=== PATIENT | male | born 1980 | race Caucasian/White ===

== ENCOUNTER 2018-02-13 02:26 | Emergency (ER) | payer SELFPAY ==
[2018-02-13 04:03] LABS: Basophils # (Auto) 0.1 K/mm3 (0.0-0.1); Basophils % (Auto) 0.7 % (0.0-1.8); Eosinophils # (Auto) 0.1 K/mm3 (0.0-0.4); Eosinophils % (Auto) 0.5 % (0.0-4.3); Hematocrit 44.6 % (35.5-45.6); Hemoglobin 15.3 gm/dl (11.8-15.2); Mean Corpuscular HGB Conc 34 % (32-34); Mean Corpuscular Hemoglobin 33 pg (28-32); Mean Corpuscular Volume 95 fl (84-94); Monocytes # (Auto) 2.4 K/mm3 (0.0-0.8); Monocytes % (Auto) 12.3 % (0.0-7.3); Platelet Count 379 K/mm3 (140-440); Red Blood Count 4.68 M/mm3 (3.65-5.03)
[2018-02-13 04:20] LABS: Alanine Aminotransferase 14 units/L (7-56); Albumin 4.4 g/dL (3.9-5); BUN/Creatinine Ratio 16; Blood Urea Nitrogen 13 mg/dL (9-20); Calcium 10.2 mg/dL (8.4-10.2); Hemolysis Index 3
[2018-02-13] MEDS ORDERED: ZOSYN/NS 4.5GM/100ML 4.5 GM/100 ML VIAL IV ONE (11:09)
[2018-02-13] MEDS ORDERED: NACL 0.9% 1000 ML 1,000 ML IV ONE (11:09)
--- NOTE | 2018-02-13 11:13 | Emergency Department Report ---
ED Abdominal Pain HPI - General Chief Complaint: Abdominal Pain Stated Complaint: FLANK PAIN Time Seen by Provider: 02/13/18 11:05 Source: patient Mode of arrival: Ambulatory Limitations: No Limitations - History of Present Illness Initial Comments: Patient is 37 years old male with no significant past medical history. Patient presented to the ER complaining all lower abdominal pain started yesterday. Patient stated that his pain is sharp and comes and goes. Patient denied any nausea or vomiting. No diarrhea. Patient also denied any fever, chest pain, cough or shortness of breath. MD Complaint: abdominal pain Severity scale (0 -10): 0 - Related Data Allergies Allergy/AdvReac Type Severity Reaction Status Date / Time No Known Allergies Allergy Unverified 02/13/18 03:15 ED Review of Systems ROS: Stated complaint: FLANK PAIN Other details as noted in HPI Comment: All other systems reviewed and negative Constitutional: denies: chills, fever Respiratory: denies: cough, orthopnea, shortness of breath, SOB with exertion, SOB at rest, wheezing Cardiovascular: denies: chest pain Gastrointestinal: abdominal pain. denies: nausea, vomiting, diarrhea, constipation, hematemesis, melena, hematochezia Genitourinary: denies: urgency, dysuria, frequency, hematuria, discharge Neurological: denies: headache, weakness, numbness, paresthesias, confusion, abnormal gait ED Past Medical Hx - Past Medical History Previous Medical History?: No - Surgical History Past Surgical History?: No - Social History Smoking Status: Current Every Day Smoker Substance Use Type: Alcohol ED Physical Exam - General Limitations: No Limitations General appearance: alert, in no apparent distress - Head Head exam: Present: atraumatic, normocephalic, normal inspection - ENT ENT exam: Present: normal exam, normal orophraynx, mucous membranes moist - Neck Neck exam: Present: normal inspection. Absent: tenderness, meningismus, full ROM, lymphadenopathy - Respiratory Respiratory exam: Present: normal lung sounds bilaterally. Absent: respiratory distress, wheezes, rales, rhonchi, stridor, chest wall tenderness, accessory muscle use, decreased breath sounds, prolonged expiratory - Cardiovascular Cardiovascular Exam: Present: regular rate, normal rhythm, normal heart sounds - GI/Abdominal GI/Abdominal exam: Present: soft, tenderness, normal bowel sounds. Absent: distended, guarding, rebound, rigid, organomegaly, mass, bruit, pulsatile mass, hernia - Extremities Exam Extremities exam: Present: normal inspection, full ROM, normal capillary refill - Back Exam Back exam: Present: normal inspection, full ROM. Absent: tenderness, CVA tenderness (R), CVA tenderness (L), muscle spasm, paraspinal tenderness, vertebral tenderness, rash noted - Neurological Exam Neurological exam: Present: alert, oriented X3, CN II-XII intact, normal gait, reflexes normal - Skin Skin exam: Present: warm, intact, normal color ED Course Vital Signs 02/13/18 02/13/18 02/13/18 03:06 08:29 11:34 Temperature 99.2 F 98.8 F Pulse Rate 89 83 Respiratory 16 15 15 Rate Blood Pressure 127/94 145/91 Blood Pressure [Left] O2 Sat by Pulse 98 98 98 Oximetry 02/13/18 11:35 Temperature 98.9 F Pulse Rate 75 Respiratory 15 Rate Blood Pressure Blood Pressure 126/71 [Left] O2 Sat by Pulse 98 Oximetry - Reevaluation(s) Reevaluation #1: 02/13/18 14:41 Patient stated that he is feeling much better. Patient has to benign any cough or chest pain or shortness of breath. Also no fever. Patient denied any nausea or vomiting. CT scan showed right lower lobe pneumonia followed by chest x-ray which showed right lower lobe pneumonia Plan went on the left flank. He stated he was having history of cough and shortness of breath last week but that went away. Patient received Zosyn in the ER and I prescribed Levaquin for 7 days and advised patient to follow along as his primary care physician in the next 2-3 days. I also informed the patient to attend to the ER if his symptoms are not improving. ED Medical Decision Making - Lab Data Result diagrams: 02/13/18 03:45 02/13/18 03:45 - Radiology Data Radiology results: report reviewed Referring Physician: DELMAR RODRIGUEZ Patient Name: JAJA ORELLANA Date of : 1980 Sex: Male Report Date: 2018-02-13 Report Status: Finalized Findings [facility] [address] [place] [address] Cat Scan Report Signed Patient: JAJA ORELLANA MR#: [id number] : 1980 Acct:[id number] Age/Sex: 37 / M ADM Date: 02/13/18 Loc: ED Attending Dr: Ordering Physician: DELMAR RODRIGUEZ Date of Service: 02/13/18 Procedure(s): CT abdomen pelvis w con Accession Number(s): [id number] cc: DELMAR RODRIGUEZ CT ABDOMEN PELVIS WITH CONTRAST: HISTORY: abdominal pain. COMPARISON: none. TECHNIQUE: Helical CT in 1.25mm intervals following IV contrast. Sagittal and coronal reconstructions. FINDINGS: Lung bases: There are areas of consolidation in the right lower lobe and to a lesser extent the right middle lobe. A small layering right pleural effusion is identified. There is subtle groundglass infiltration in the left lower lobe. Heart size is normal. Liver: Normal. Biliary system: Normal. Pancreas: Normal. Spleen: Normal. Kidneys/ureters/bladder: Normal. Adrenal glands: Normal. Aorta: Normal. Intestines: Normal. Appendix: Normal. Pelvic viscera: Normal. Ascites: None. Adenopathy: None. Musculoskeletal: Normal. IMPRESSION: Lower lobe infiltrates, right greater than left. Small right pleural effusion. Correlate for pneumonia. Unremarkable abdomen and pelvis. Transcribed By: TTR Dictated By: DARRICK MARIEE JR, MD Electronically Authenticated By: DARRICK MARIEE JR, MD Signed Date/Time: 02/13/181333 DD/ 31 TD/TT: 02/13/18 133 Critical care attestation.: If time is entered above; I have spent that time in minutes in the direct care of this critically ill patient, excluding procedure time. ED Disposition Clinical Impression: Abdominal pain, Right lower lobe pneumonia Disposition: DC-01 TO HOME OR SELFCARE Is pt being admited?: No Condition: Stable Instructions: Bacterial Pneumonia (ED) Referrals: PRIMARY CARE, [Primary Care Provider] - 3-5 Days
[2018-02-13 12:33] LABS: Bilirubin,Urine NEG (Negative); Blood,Urine SM (Negative); Color,Urine Yellow (Yellow); Mucus,Urine FEW /HPF; Protein,Urine <15 mg/dL mg/dL (Negative); Urobilinogen,Urine < 2.0 mg/dL (<2.0); WBC,Urine < 1.0 /HPF (0.0-6.0)
--- NOTE | 2018-02-13 13:35 | Cat Scan Report ---
CT ABDOMEN PELVIS WITH CONTRAST: HISTORY: abdominal pain. COMPARISON: none. TECHNIQUE: Helical CT in 1.25mm intervals following IV contrast. Sagittal and coronal reconstructions. FINDINGS: Lung bases: There are areas of consolidation in the right lower lobe and to a lesser extent the right middle lobe. A small layering right pleural effusion is identified. There is subtle groundglass infiltration in the left lower lobe. Heart size is normal. Liver: Normal. Biliary system: Normal. Pancreas: Normal. Spleen: Normal. Kidneys/ureters/bladder: Normal. Adrenal glands: Normal. Aorta: Normal. Intestines: Normal. Appendix: Normal. Pelvic viscera: Normal. Ascites: None. Adenopathy: None. Musculoskeletal: Normal. IMPRESSION: Lower lobe infiltrates, right greater than left. Small right pleural effusion. Correlate for pneumonia. Unremarkable abdomen and pelvis.
--- NOTE | 2018-02-13 15:08 | XRay Report ---
AP CHEST: HISTORY: Pneumonia Patchy infiltrate at the right lung base and small right pleural effusion are identified. There may be minimal infiltrate at the left lung base versus segmental atelectasis. Heart and mediastinal structures are unremarkable. The bony structures are intact. IMPRESSION: Right lower lobe infiltrate and small right pleural effusion.
[2018-02-13 15:56] VITALS: BP 140/87
== END 2018-02-13 15:57 | disposition home or self-care (01) ==
LOC: ED 02:26
DX: J18.1 Lobar pneumonia, unspecified organism (principal); R10.30 Lower abdominal pain, unspecified; F17.200 Nicotine dependence, unspecified, uncomplicated
CPT/HCPCS: 36415; 71045; 74177; 80053; 81001; 83690; 85025; 96365; 99284; J2543; J7030; Q9967